=== PATIENT | male | born 2000 | race Caucasian/White ===

== ENCOUNTER 2018-09-19 16:04 | Emergency (ER) | payer MEDICAID, SELFPAY ==
--- NOTE | 2018-09-19 16:59 | CT ---
CT CERVICAL SPINE WITHOUT CONTRAST: Date: 09-19-18 Provided Clinical History: Injury. FINDINGS: There is no evidence for fracture or traumatic subluxation. No prevertebral soft tissue swelling evid ent. The visualized lung apices appear clear. IMPRESSION: No evidence for fracture or traumatic subluxation. POS: OFF
[2018-09-19 18:30] LABS: Bilirubin Negative (Negative); Blood, Urine Negative (Negative); Clarity CLEAR (Clear); Glucose, Urine (Dipstick) Negative (Negative); Leukocyte Negative (Negative); Nitrite Negative (Negative); Protein, Urine (Dipstick) 30 mg/dL (Neg-Trace); Specific Gravity, Urine 1.023 (1.002-1.036)
[2018-09-19 18:31] LABS: Bacteria/HPF None Seen HPF (None Seen); Pathc Cast-AUWi Flag 0.95 (0-2.49); RBC/HPF 0-3 HPF (0-3); Squamous Epithelial 0-3 HPF (0-3)
[2018-09-19 18:33] LABS: Hyaline Casts/LPF 0-3 HYALINE CAST LPF (0-3 Hyaline)
== END 2018-09-19 19:15 | disposition home or self-care (01) ==
LOC: ERS 16:04
DX: M54.2 Cervicalgia (principal); V59.9XXA Occupant (driver) (passenger) of pick-up truck or van injured in unspecified traffic accident, initial encounter
CPT/HCPCS: 72125; 81003; 81015